=== PATIENT | male | born 1945 | race Caucasian/White ===

== ENCOUNTER 2016-08-28 14:55 | Inpatient (IN) | payer MEDICARE, OTHER ==
[~2016-08-28] VITALS: Ht 177.8 cm; Wt 98.4 kg
--- NOTE | ~2016-08-28 | CON ---
PATIENT'S NAME: ALE RM [facility] AGE: 71 Y [address] ROOM: [place] [address] LOCATION: GPCU ADMIT DATE: 08/28/2016 Consultation DISCHARGE DATE: FAMILY PHYSICIAN: Adali Walton ATTENDING PHYSICIAN: CARMINE UNGER DATE OF CONSULTATION: 08/30/2016 REASON FOR CONSULTATION: Postop wound infection/SSI, left lower extremity. HISTORY: Mr. Rm is a 71-year-old male who has had a history of significant peripheral arterial disease in his left leg. He underwent a left-sided femoral below- knee bypass procedure with PTFE graft on August 03. This was after having had a work on the right side back in April. He noted that shortly after the surgery he started having drainage from the wound near his left knee. The drainage persisted, he was started on Levaquin, and the drainage became a little bit more cloudy, thus he was brought into the hospital for IV antibiotics by Dr. Unger. CT scan of the leg had revealed a couple of fluid collections, one of which has gas on the rim, concerning for an infected fluid collection. He has been started on vancomycin and Zosyn and blood cultures have been sent. The patient denies having had any systemic signs of infection with no fevers, chills, sweats, nausea, vomiting, weight or appetite changes. He otherwise feels well. He is having a little bit of pain around his knee and up into his thigh, but otherwise does not really have any pain. ID has been asked to see and assist with further treatment. PAST MEDICAL HISTORY: Significant for coronary disease with CABG, he has ischemic cardiomyopathy, chronic diastolic heart failure, he has peripheral vascular disease with the vascular procedures done as above, diabetes, paroxysmal atrial fibrillation, and hypercholesterolemia. SOCIAL HISTORY: He does not smoke, drink, or use any illicit drugs now. FAMILY HISTORY: Reviewed and not related to anything of currently going on with his clinical presentation. MEDICATIONS: He is on vancomycin and Zosyn now. ALLERGIES: PATIENT'S NAME: ALE RM [facility] AGE: 71 Y [address] ROOM: [place] [address] LOCATION: GPCU ADMIT DATE: 08/28/2016 Consultation DISCHARGE DATE: FAMILY PHYSICIAN: Adali Walton ATTENDING PHYSICIAN: CARMNIE UNGER HE HAS NO KNOWN DRUG ALLERGIES. REVIEW OF SYSTEMS: All remaining review of systems otherwise negative with pertinent positives and negatives in the HPI. PHYSICAL EXAMINATION: GENERAL: He is not in acute distress. Awake, alert, and oriented. Lying in bed. VITAL SIGNS: His temperature max is 98.7, blood pressure is 141/78, pulse is 67, and respirations are 12. HEENT: NC/AT. EOMI. PERRLA. NECK: Supple. LUNGS: Clear. HEART: Regular, S1 and S2 without obvious murmur. ABDOMEN: Protuberant, soft, nontender, and nondistended. EXTREMITIES: He has a surgical incision in the medial aspect of his left knee, that is draining some serosanguineous purulent material that I did a culture on. There is a bit of wound dehiscence. There was a little bit of fatty tissue exposed. There is mild edema of his lower extremity, not really significant cellulitis now, without significant erythema. Does have a bit of induration along his tibia and the calf is definitely larger than the other side. LABORATORY DATA: White count 6.5, hemoglobin 10.6, platelet count 168, sedimentation rate was 64. Creatinine 0.8. CRP is 10.6. ASSESSMENT AND PLAN: 1. Surgical site infection, left lower extremity, after femoral to below- knee bypass with PTFE graft underneath this. 2. Multiple other medical problems including coronary disease, peripheral arterial disease, diabetes, paroxysmal atrial fibrillation. PLAN: I did a culture of the wound drainage to see if this helps us. He has already been on some antibiotics and this will be impacted by that. We will see what his blood cultures show. Overall concerning that the graft may be involved here, which is going to be difficult to fix. He may need to undergo a debridement at least to see what is all involved and/or perhaps even removal of the graft. We will see how he responds. Good news is he is not systemically ill now, and we will see what his cultures show. Another option is to try to suppress any apparent infection of the graft, but this is sometimes difficult. We will keep him on the vancomycin and Zosyn for now pending his cultures. We will see him again in a week and see how he does PATIENT'S NAME: ALE RM [facility] AGE: 71 Y [address] ROOM: [id number] [place], [place] [address] LOCATION: [facility] ADMIT DATE: 08/28/2016 Consultation DISCHARGE DATE: FAMILY PHYSICIAN: Adali Walton ATTENDING PHYSICIAN: CARMINE UNGER over time. If he fails to respond, then I think his only option would be surgical. We will treat him aggressively for now and await his cultures. MD RENO WIGGINS/jose /[id number] d: 08/31/16 0027 t: 09/05/16 1452, CONSULTATION REPORT
--- NOTE | ~2016-08-28 | CON ---
PATIENT'S NAME: ALE RADER [facility] AGE: 71 Y [address] ROOM: [place] [address] LOCATION: GPCU ADMIT DATE: 08/28/2016 Consultation DISCHARGE DATE: FAMILY PHYSICIAN: Adali Walton ATTENDING PHYSICIAN: LASHA UNGER REFERRING PHYSICIAN: Lasha Unger MD REASON FOR CONSULTATION: Medical management. HISTORY OF PRESENT ILLNESS: The patient is a 71-year-old male with past medical history most significant for peripheral vascular disease, status post recent left-sided femoropopliteal bypass approximately a month ago. He also has a past medical history of coronary artery disease, CABG, ischemic cardiomyopathy with improvement, chronic diastolic congestive heart failure, diminished right ventricular systolic function, and insulin-dependent diabetes as well as paroxysmal atrial fibrillation, on Coumadin. The patient developed drainage and warmth around his left anterior tibial incision site from his femoral-popliteal. He discussed this with his vascular surgeon, Dr. Unger who started him on Levaquin. However, the wound continued to open up and drain of purulent- appearing fluid. The patient also endorses history of chills, but no fevers, nausea, vomiting, chest pain, shortness of breath, or palpitations. Today, the patient was told to come into the hospital for aggressive antibiotic therapy by Dr. Unger. A CAT scan of the left leg with IV contrast is planned as well. REVIEW OF SYSTEMS: All systems have been reviewed and are negative aside from pertinent positives mentioned above. PAST MEDICAL HISTORY: Significant for coronary artery disease, status post CABG; ischemic cardiomyopathy with recently improved ejection fraction; stage III diastolic dysfunction; recent left femoropopliteal bypass; right femoral popliteal bypass; peripheral vascular disease; insulin-dependent diabetes; hypertension; hypercholesterolemia; and paroxysmal atrial fibrillation. SOCIAL HISTORY: Negative for any ongoing toxic habits. FAMILY HISTORY: Reviewed and is noncontributory due to known underlying etiology for his presentation. PATIENT'S NAME: ALE RADER [facility] AGE: 71 Y [address] ROOM: [place] [address] LOCATION: GPCU ADMIT DATE: 08/28/2016 Consultation DISCHARGE DATE: FAMILY PHYSICIAN: Adali Walton ATTENDING PHYSICIAN: LASHA UNGER CURRENT MEDICATIONS ARE: 1. Atorvastatin. 2. Carvedilol. 3. Clopidogrel. 4. CPAP. 5. Dextrose. 6. Furosemide. 7. Glucagon. 8. Hydrocodone/acetaminophen. 9. NovoLog based on the meals. 10. Detemir 68 units. 11. Levaquin 500 daily. 12. Losartan 50. 13. Magnesium oxide. 14. Metformin. 15. Multivitamin. 16. Nitroglycerin. 17. Potassium chloride. 18. Requip. 19. Temazepam. 20. Tramadol. 21. Warfarin. PHYSICAL EXAMINATION: VITAL SIGNS: Blood pressure is 125/68, heart rate is 63, saturating is 94% on room air, temperature is 98.6, and respirations are 16. GENERAL: Well-developed, well-nourished, elderly male, in no acute distress. NEUROLOGICAL: Exam is nonfocal. EYES: Pupils are equal and reactive to light. LYMPHATIC: No cervical lymphadenopathy. ENDOCRINE: No thyromegaly. LUNGS: Clear to auscultation in all flores. HEART: Rate is irregularly irregular with no appreciable murmurs, gallops, or rubs. GI: Abdomen is soft, nontender, and nondistended. : No costovertebral angle tenderness. VASCULAR: Exam demonstrates diminished pulses bilaterally. SKIN: Shows an approximately 3-inch incision which is dehisced and draining yellowish fluid approximately 4 inches below his knee. PSYCHIATRIC: Exam reveals appropriate mood, cognition, and affect. LAB RESULTS: Not available as of yet. IMPRESSION AND RECOMMENDATIONS: PATIENT'S NAME: ALE RADER [facility] AGE: 71 Y [address] ROOM: [place] [address] [facility] ADMIT DATE: 08/28/2016 Consultation DISCHARGE DATE: FAMILY PHYSICIAN: Adali Walton ATTENDING PHYSICIAN: LASHA UNGER This is a 71-year-old male, admitted for a ikely wound infection several weeks following a femoropopliteal bypass.Individual problems to be addressed are 1. Ssuspected wound infection: antibiotics and a CAT scan had been ordered by Primary Service. We will also draw blood cultures as the patient does endorse some vague systemic symptoms. 2. Stage III Chronic diastolic congestive heart failure with nonischemic cardiomyopathy. At this point, the patient appears euvolemic and we will monitor his volume status and continue him on his CHF regimen. 3. History of insulin-dependent diabetes. We will continue the patient on his home insulin regimen. We will discontinue metformin given the fact the patient will receive contrast. 4. Atrial fibrillation. At this point, he appears to be rate controlled and we will hold off on anticoagulation at least for today until we have the results from the CAT scan and if just in case a surgical intervention is planned. 5. Gastrointestinal prophylaxis. We will put the patient on Florastor as he is on broad-spectrum antibiotics. We will follow the patient with you. Thank you for allowing us to participate in the care of this gentleman. Time dedicated to this patient's encounter is [address]/jose /[id number] d: 08/28/16 2340 t: 09/03/16 0904, CONSULTATION REPORT
--- NOTE | ~2016-08-28 | CON ---
PATIENT'S NAME: ALE RADER [facility] AGE: 71 Y [address] ROOM: [place] [address] LOCATION: GPCU ADMIT DATE: 08/28/2016 Consultation DISCHARGE DATE: 09/05/2016 FAMILY PHYSICIAN: Adali Walton ATTENDING PHYSICIAN: Lasha Unger DATE OF CONSULTATION: 09/04/2016 REFERRING PHYSICIAN: Nikki Erazo MD REASON FOR CARDIOLOGY CONSULT: Ventricular tachycardia. HISTORY OF PRESENT ILLNESS: This is a 71-year-old male, familiar to [facility]. He was last seen by Dr. Erazo on 03/13/2016 for his history of ischemic cardiomyopathy, paroxysmal atrial flutter, coronary artery disease, and stable angina. Currently admitted for a left lower leg incision infection after a femoral-popliteal bypass. This consult requested due to the patient having ventricular tachycardia on his telemetry for about 4 beats. He has been having occasional PVCs over the last 24 hours. He denies chest pain, shortness of breath, dyspnea on exertion, or palpitations. He also denies presyncope or syncope, as well as nausea, vomiting, or diarrhea. Overall this time, he only complains of his left leg pain and no other medical issues from his standpoint currently. PAST MEDICAL HISTORY: 1. Coronary artery disease with a history of coronary artery bypass grafting. 2. Ischemic cardiomyopathy. 3. Diastolic congestive heart failure, chronic. 4. Peripheral vascular disease with a recent left femoral-popliteal bypass. 5. History of a right femoral-popliteal bypass. 6. Insulin-dependent diabetes mellitus. 7. Hypertension. 8. Hypercholesterolemia. 9. Paroxysmal atrial flutter. FAMILY HISTORY: No significant family history noted. SOCIAL HISTORY: The patient is a former cigarette smoker. He smoked 1-3 packs per day for a total of 50 years. He quit smoking in 2017 in June. He denies alcohol or illicit drug use. PATIENT'S NAME: ALE RADER [facility] AGE: 71 Y [address] ROOM: [place] [address] LOCATION: GPCU ADMIT DATE: 08/28/2016 Consultation DISCHARGE DATE: 09/05/2016 FAMILY PHYSICIAN: Adali Walton ATTENDING PHYSICIAN: Lasha Unger CURRENT MEDICATIONS: Reviewed. Please see MAR for full details. MEDICATION ALLERGIES: No known medication allergies. REVIEW OF SYSTEMS: Pertinent positive review of systems listed in the HPI. All other review of systems negative. PHYSICAL EXAMINATION: VITAL SIGNS: Temperature 98.4, pulse 51, respirations 20, blood pressure 145/76, O2 saturation 95% on room air. The patient weighs 96.2 kg. SKIN: [place], warm, and dry. EYES: Sclerae clear. No xanthelasmas. ENT: Oral mucosa is pink and moist. No jugular venous distention. No carotid bruits. CHEST: Respirations are even and unlabored. LUNGS: Clear to auscultation. Lung sounds are diminished to bilateral bases. HEART: Regular rate and rhythm. Normal S1, S2. No murmurs, rubs, or gallops. ABDOMEN: Soft and nontender. MUSCULOSKELETAL: Equal muscle strength in upper and lower extremities bilaterally against resistance. EXTREMITIES: Peripheral pulses palpable. No clubbing, cyanosis, or edema. Does have the presence of a wound VAC to his left lower extremity. PSYCH: Alert and oriented. Mood and affect are appropriate. IMPRESSION AND PLAN: Per Dr. Nikki Erazo: 1. Ventricular ectopy with a potassium of 4.2 and a magnesium of 2.1. We will check an EKG to fully evaluate electrocardiographic changes. 2. Coronary artery disease without complaints of angina. We will continue his beta blockers, statin, and Plavix. 3. Ischemic cardiomyopathy with last known ejection fraction of 45% on 02/02/2016. On beta-faisal, ARB, and Lasix. 4. Paroxysmal atrial flutter. Currently sinus rhythm. He is off long-term anticoagulation and unsure as to why he is not on anticoagulation. No noted recent history of bleeding and no planned surgery is upcoming, so we will restart his long-term anticoagulation with Coumadin and bridge him with IV heparin. I have spoken with Dr. Bora Hdz about this and he agrees with this plan. 5. Incisional infection from his femoral-popliteal bypass. Currently under the care of Vascular Surgery as well as Wound Care and does have a wound VAC placed to that injury. PATIENT'S NAME: ALE RADER [facility] AGE: 71 Y [address] ROOM: [id number] [place], [place] [address] [facility] ADMIT DATE: 08/28/2016 Consultation DISCHARGE DATE: 09/05/2016 FAMILY PHYSICIAN: Adali Walton ATTENDING PHYSICIAN: Lasha Unger. For his nonsustained ventricular tachycardia in the setting of paroxysmal atrial flutter and history of ischemic cardiomyopathy, we will continue to monitor, evaluate, and treat appropriately. I see no further need for invasive cardiac workup and no further cardiac recommendations at this time. Thank you for this consult. Thank you for allowing [facility] to interact in the care of this patient. LUCRETIA HERNANDEZ APRN FOR MD YUAN LAI/jose /[id number] d: 09/06/16 2219 t: 09/07/16 1052, CONSULTATION REPORT
--- NOTE | ~2016-08-28 | DS ---
PATIENT'S NAME: HERNAN RADER [facility] AGE: 71 Y [address] ROOM: [id number] [place], [place] [address] LOCATION: GPCU ADMIT DATE: 08/28/2016 Discharge Summary DISCHARGE DATE: 09/05/2016 FAMILY PHYSICIAN: Adali Walton ATTENDING PHYSICIAN: Lasha Unger FINAL DIAGNOSIS: Surgical incision infection. SECONDARY DIAGNOSES: Peripheral vascular disease, postop femoropopliteal bypass with graft, insulin-dependent diabetes mellitus, coronary artery disease, paroxysmal atrial flutter, hypertension, and chronic congestive heart failure. CONSULTATIONS: 1. Hospitalist for medication management. 2. [facility], Cardiology. 3. Infectious Disease, Dr. Voss. HOSPITAL COURSE: This is a 71-year-old male, admitted to [facility] on 08/28/2016 after presenting to the [facility] for evaluation of his distal left lower extremity incision site. The patient is post femoropopliteal bypass with graft on 08/03/2016. After staple removal, Hernan started having a significant increase in left lower extremity drainage, edema, and erythema. Involvement appeared superficial at the time of clinic evaluation, so he was admitted for aggressive treatment with IV antibiotics to prevent development of infection to his graft. The patient also needed rest with elevation of extremity to decrease reperfusion edema and monitoring for systemic infection. See history and physical for full patient details. The patient was admitted to the progressive care unit for monitoring of labs, vitals, telemetry, incision and administration of medications, and nursing assistance. A CT scan of the left leg with IV contrast was obtained showing gas and fluid collection. He was initially started on IV vancomycin and Zosyn with wet-to-dry with Dakin's twice a day to treat cellulitis. Blood cultures were drawn x2 without growth. Inflammatory markers were found to be elevated. Hospitalists were consulted for medication management. The patient does have a known history of paroxysmal atrial flutter, on Coumadin, which was stopped initially by hospitalist for the need of any surgical intervention. Infectious Disease was also consulted, and they obtained a wound culture and recommended that if the patient fails to respond to antibiotic treatment, he would need surgical intervention. The patient's lower extremity continued to improve over the hospital stay. The patient remained free of systemic symptoms of infection. Hernan denied any fevers, chills, or overall feeling unwell. From a physical exam standpoint, his leg did improve in appearance with a decrease in edema, erythema, and drainage. The drainage remained serosanguineous throughout his hospital stay and never PATIENT'S NAME: HERNAN RADER [facility] AGE: 71 Y [address] ROOM: [place] [address] LOCATION: GPCU ADMIT DATE: 08/28/2016 Discharge Summary DISCHARGE DATE: 09/05/2016 FAMILY PHYSICIAN: Adali Walton ATTENDING PHYSICIAN: Lasha Unger turned to purulent drainage. Also, wound VAC was applied on 09/01/2016 for control of drainage, and he was later transitioned to a home VAC prior to discharge. Cardiologists were consulted to see the patient for a run of V- TACH. He was restarted on his Coumadin during hospital stay and given heparin drip to bridge until INR is therapeutic. The patient did need to be discharged home with Lovenox as his INR was not therapeutic prior to discharge on Coumadin. The patient was found in a stable condition to be discharged home. DIAGNOSTICS: CT of left lower leg with contrast: Impression: Complex fluid and gas collection in the medial soft tissue at the knee and lower leg extending down from incision could reflect abscess. The arterial graft is patent. LABORATORY DATA: Wound culture grew Streptococcus agalactiae, group B. Blood cultures with no growth at 5 days. White blood cell count trending, 8.3, 6.5, 8.0, 8.6. DISCHARGE ORDERS: The patient is to be discharged home from the hospital on a diabetic diet and consume yogurt daily. He is full weightbearing bilaterally, but is to keep legs elevated when at rest to decrease edema. He is to follow up with Outpatient Wound Care every Sunday, Sunday, and Sunday for wound VAC dressing changes. Dr. Unger will follow the patient in Wound Care, and will plan on seeing the patient 2 weeks after discharge. Wound care nurses are to report any signs or symptoms of infection. The patient is also to call with any concerns of signs or symptoms of infection including redness, swelling, fever, chills, or change in drainage. The patient is to have his INR drawn on 09/08/2016 with results to be called to Dr. Capone. DISCHARGE MEDICATIONS: 1. Lasix 40 mg p.o. daily. 2. Metformin 1700 mg p.o. at bedtime. 3. Losartan 50 mg p.o. daily. 4. Multivitamin 1 tablet every day. 5. Coumadin 9 mg p.o. 4 days a week; take Sunday, Sunday, , Sunday. 6. Warfarin 6 mg p.o. daily 3 times a week; take Sunday, Sunday, Sunday. 7. Potassium chloride 10 mEq p.o. daily. 8. Dextrose 4 g orally as needed hypoglycemia. 9. Restoril 15 mg p.o. every night at bedtime. 10. Levemir 68 units subcutaneously every night at bedtime. 11. NovoLog 8 units subcutaneous every morning. 12. NovoLog 16 units subcutaneously every evening at 2100 hours. 13. Plavix 75 mg p.o. daily. 14. Magnesium 420 mg p.o. daily. PATIENT'S NAME: HERNAN RADER [facility] AGE: 71 Y [address] ROOM: [place] [address] [facility] ADMIT DATE: 08/28/2016 Discharge Summary DISCHARGE DATE: 09/05/2016 FAMILY PHYSICIAN: Adali Walotn ATTENDING PHYSICIAN: Lasha Unger 15. Coreg 12.5 mg p.o. twice daily. 16. Nitroglycerin 0.4 mg sublingually as needed for chest pain. 17. Lipitor 40 mg p.o. daily at bedtime. 18. Requip 0.5 mg p.o. daily at bedtime. 19. CPAP per home settings. 20. Metformin 850 mg p.o. daily in the morning. 21. Tramadol 50 mg p.o. every 6 hours p.r.n. pain. 22. Mobile 5/325 one to two tablets p.o. every 4 hours as needed pain. 23. Glucagon 1 mg subcutaneous one time hypoglycemia. 24. NovoLog 20 units subcutaneously every noon. 25. Align 1 capsule orally every day. 26. Lovenox 100 mg subcutaneously twice daily. 27. Keflex 500 mg p.o. 3 times daily. DISPOSITION: The patient is discharged to home in a stable condition. He is to follow discharge orders as prescribed. Education about discharge including wound VAC, medications, prescriptions, diet and activity, and followup appointments given to the patient, and the patient verbalized understanding of the plan and has no further questions or concerns at this time. He is to follow discharge orders as prescribed. TAMAR VIOLETA KAPOOR FOR LASHA UNGER MD TO/modl /[id number] d: 09/09/16 0512 t: 09/11/16 1345, DISCHARGE SUMMARY
[~2016-08-28 14:55] MED LIST: ASPIRIN LO-DOSE81 MG PO; COREG25 MG PO; COUMADIN6 MG PO; COZAAR100 MG PO; CPAP INH; GLUCAGON 1 MG PE1 MG SUB-Q; GLUCOPHAGE850 MG PO; GLUCOSE4 GM PO; HYDROCODON-ACE1 EAC4 PO; KCL - MICRO-K10 MEQ PO; LASIX40 MG PO; LEVAQUIN500 MG PO; LEVEMIR FL100 UNIT/1 SUB-Q; LEVEMIR100 UNIT/1 SUB-Q; LIPITOR80 MG PO; LOPRESSOR50 MG PO; MAGNESIUM OXID420 MG PO; MIRALAX17 GM PO; MULTI VITAMIN1 EACH PO; NITROSTAT0.4 MG SL; NORCO 5-325 TA1 EACH PO; NOVOLOG FL100 UNIT/1 SUB-Q; NOVOLOG100 UNIT/M SUB-Q; PLAVIX75 MG PO; REQUIP0.5 MG PO; RESTORIL15 MG PO; ULTRAM50 MG PO
[2016-08-28] MEDS ORDERED: NOVOLOG FL100 UNIT/1 SUB-Q (15:36)
--- NOTE | 2016-08-28 15:50 | NUR ---
Pt is 71 y/o male admit for incision infection in left lower leg for Dr. Unger. PT alert and oriented x3. Resides at home with his . Pt had a fem/ pop bypass on Aug 03 here with . PT wound is now draining sero- sanguinous clear yellow fluid, large amts. Pt has also had increased pain over the past few days. Hx afib/aflutter,PAD,CABG,stent,cardiac ablation,CHF,KY, hypercholest,htn,sleep apnea,RLS,DM. No allergies. Incision is red and draining.
[2016-08-28] MEDS ORDERED: LEVAQUIN500 MG PO (15:56)
[2016-08-28 16:27] LABS: BASOPHIL % 0.2 %; EOSINOPHIL # 0.2 K/uL (0.0-0.5); EOSINOPHIL % 2.2 %; HEMATOCRIT 36.1 % (37.0-53.0); HEMOGLOBIN 11.5 g/dL (11.0-16.0); IMMATURE GRANULOCYTE % 0.2 %; LYMPHOCYTE % 12.4 %; MCH 30.2 pg (27.0-34.0); MCHC 31.9 gm/dL (32.0-36.5); MCV 94.8 fl (83.0-98.0); MONOCYTE # 1.1 K/uL (0.0-1.0); MONOCYTE % 13.2 %; MPV 12.3 fl (9.4-12.4); NEUTROPHIL % 71.8 %; NRBC % 0 /100WBC (0-0.00); RBC 3.81 M/uL (3.50-5.50); RDW-CV 15.3 % (11.9-14.6); WBC 8.3 K/uL (4.0-11.0)
[2016-08-28 16:38] LABS: PLATELET COUNT 178 K/uL (150-450)
[2016-08-28 16:48] LABS: ANION GAP 12.4 (10.0-19.0); BLOOD UREA NITROGEN 19 mg/dL (6-24); CALCIUM 8.7 mg/dL (8.5-10.5); CHLORIDE 105 mMol/L (96-110); CO2 26 mMol/L (22-32); POTASSIUM 4.4 mMol/L (3.7-5.1); SODIUM 139 mMol/L (135-145)
[2016-08-28 16:50] LABS: ESTIMATED GFR (MDRD EQUATION) > 60
[2016-08-28 18:05] LABS: INR - (THERAPEUTIC) 1.6 (0.9-1.1); PROTIME 17.5 SECONDS (9.6-11.1)
--- NOTE | 2016-08-29 05:03 | NUR ---
Significant Event: Patient alert and oriented x3. SBP 116-148. All other vital signs stable. On RA. Dressing to L) Knee changed per orders. Slight drainage since. Drainage marked with third assessment. [place] x3 given for complaints of pain to L) leg. L.) Forearm IV S/L. Calm and cooperative with all cares. Follow up: Continue to monitor pain and L) Leg. Continue IV antibiotics.
--- NOTE | 2016-08-29 10:30 | NUR ---
Diabetes consult: Patient reports having diabetes for 15 years. Current A1C is 8.6%. Patient reports his previous A1C, 2 months prior was 7%. The patient reports his diabetes is managed by Dr. Walton at the [facility] in [place]. Blood sugars ran 235 and 330 yesterday, however the patient had a fasting blood sugar of 81 this morning. The patient reports he typically does not have low blood sugars. The patient does take large amounts of basal/bolus insulin to control blood sugars. Diabetes assessment form completed. Will continue to trend blood sugars.
--- NOTE | 2016-08-29 12:55 | NUR ---
Introduced self and role of care management to patient. He lives in [place] with his . He states that he is able to do all his own ADL's. He has been using a cane for the last few days. He states that his will be available to assist as needed. He denies any needs at this time. Will continue to follow.
[2016-08-29 17:56] LABS: MAGNESIUM 2.1 mg/dL (1.3-2.6); POTASSIUM 3.9 mMol/L (3.7-5.1)
--- NOTE | 2016-08-29 18:50 | NUR ---
Significant Event: VSS AND RA. AFEBRILE. 2 TABS NORCO GIVEN X3 FOR LT) LEG PAIN, WITH RELIEF. UP TO CHAIR AND AMBULATES IN MORROW WITH RN. IV ABX CONTINUE. WET TO DRY DRESSING CHANGE DONE THIS AM WITH DAKINS SOLUTION, SMALL AMOUNT SEROUS DRAINAGE PRESENT; LEG ELEVATED ALL SHIFT AND REMAINS C/D/I. VOIDS WITH ADEQUATE UOP. HAD A 15 BEAT RUN VTACH THIS EVENING, REPORTED TO MD AND MG AND K DRAWN; REPORTED TO MD AND ORDER FOR 40 MEQ KCL TO BE INFUSED FOR K LEVEL OF 3.9. MG WAS 2.1. Follow up: CONTINUE PLAN OF CARE.
[2016-08-30 03:47] LABS: BASOPHIL % 0.5 %; EOSINOPHIL # 0.3 K/uL (0.0-0.5); EOSINOPHIL % 4.5 %; HEMATOCRIT 32.6 % (37.0-53.0); HEMOGLOBIN 10.6 g/dL (11.0-16.0); IMMATURE GRANULOCYTE % 0.5 %; LYMPHOCYTE # 1.6 K/uL (0.8-4.0); MCH 30.4 pg (27.0-34.0); MCHC 32.5 gm/dL (32.0-36.5); MCV 93.4 fl (83.0-98.0); MONOCYTE # 0.8 K/uL (0.0-1.0); MONOCYTE % 12.2 %; MPV 12.1 fl (9.4-12.4); NEUTROPHIL # (ANC) 3.8 K/uL (1.4-9.0); NEUTROPHIL % 58.3 %; NRBC % 0 /100WBC (0-0.00); PLATELET COUNT 168 K/uL (150-450); RBC 3.49 M/uL (3.50-5.50); WBC 6.5 K/uL (4.0-11.0)
[2016-08-30 04:06] LABS: ALBUMIN 2.4 gm/dL (3.5-5.0); ANION GAP 11.7 (10.0-19.0); BLOOD UREA NITROGEN 14 mg/dL (6-24); CHLORIDE 109 mMol/L (96-110); CO2 27 mMol/L (22-32); CREATININE 0.8 mg/dL (0.6-1.3); ESTIMATED GFR (MDRD EQUATION) > 60; MAGNESIUM 2.2 mg/dL (1.3-2.6); PHOSPHORUS 3.4 mg/dL (2.5-4.9); POTASSIUM 3.7 mMol/L (3.7-5.1); SODIUM 144 mMol/L (135-145)
--- NOTE | 2016-08-30 04:55 | NUR ---
Significant Event: Patient alert and oriented x3. Vital signs stable. On RA. Dressing to L) Knee changed with per orders. Moderate amount of drainage with third assessment. [place] given x1 for complaints of pain to infection site. L) Forearm IV S/L. Up with 1 assist. Good uop. Calm and cooperative with all cares. Follow up: Continue to monitor L) leg and pain. Continue IV antibiotics.
--- NOTE | 2016-08-30 16:16 | NUR ---
[facility] Evaluated blood sugars today, FBS today was 80 and other ranging 130-150. Patient is very knowledged about his diabetes and [facility] CDE has nursing students in the room at time of education and patient is joking and giving students all kinds of advise. A1C states he had recent (2 weeks ago) A1C at CT of 7.2 % No further complaints at this time, instructed to notify staff if he needs assistance with diabetes while here at hospital, agrees to [facility] after dismissal.
--- NOTE | 2016-08-30 18:29 | NUR ---
PATIENT UP TO BR W/ 1 ASSIST, UP IN MORROW AT END OF SHIFT. VSS, RA. CONTINUE ANTIBIOTICS AND DRESSING CHANGES. HR 60'S-80'S, SBP 130'S-160'S. 2 NORCO W/ GOOD RELIEF.
--- NOTE | 2016-08-31 06:26 | NUR ---
Significant Event: Patient alert and oriented x3. SBP 140s-150s this shift. All other vital signs stable. On RA. Dressing to L) Knee changed per orders. ID consult with dressing change. Took cultures of wound. Edema continues. [place] given x2 for C/O pain to L) leg. L) Forearm IV S/L. Up with stand-by assist. Calm and cooperative with all cares. Follow up: Continue IV antibiotics. Continue dressing changes per orders.
--- NOTE | 2016-08-31 16:55 | NUR ---
PATIENT UP W/ STAND BY ASSIST. INCISION CONTINUES TO HAVE MODERATE TO LARGE AMOUNTS SEROUS/SEROSANG DRAINAGE. COVERED INCISION WHILE PATIENT SHOWERED. CONTINUED DAKINS SOLUTION DRESSING CHANGES. CONTINUED ANTIBIOTICS. VSS, AFEBRILE.
[2016-09-01 02:30] LABS: BASOPHIL % 0.4 %; EOSINOPHIL # 0.3 K/uL (0.0-0.5); EOSINOPHIL % 3.8 %; HEMATOCRIT 33.8 % (37.0-53.0); HEMOGLOBIN 11.1 g/dL (11.0-16.0); IMMATURE GRANULOCYTE # 0.1 K/uL (0.0-0.3); IMMATURE GRANULOCYTE % 0.6 %; LYMPHOCYTE # 1.3 K/uL (0.8-4.0); LYMPHOCYTE % 16.3 %; MCH 30.3 pg (27.0-34.0); MCHC 32.8 gm/dL (32.0-36.5); MCV 92.3 fl (83.0-98.0); MONOCYTE % 12.2 %; MPV 11.6 fl (9.4-12.4); NEUTROPHIL # (ANC) 5.3 K/uL (1.4-9.0); NEUTROPHIL % 66.7 %; NRBC % 0 /100WBC (0-0.00); PLATELET COUNT 194 K/uL (150-450); RBC 3.66 M/uL (3.50-5.50); RDW-CV 15.1 % (11.9-14.6)
[2016-09-01 02:45] LABS: ALBUMIN 2.5 gm/dL (3.5-5.0); ALK PHOS 78 IU/L (33-138); ALT 25 IU/L (12-78); AST 18 IU/L (10-40); BLOOD UREA NITROGEN 19 mg/dL (6-24); CALCIUM 8.2 mg/dL (8.5-10.5); CHLORIDE 109 mMol/L (96-110); CO2 24 mMol/L (22-32); CREATININE 0.8 mg/dL (0.6-1.3); ESTIMATED GFR (MDRD EQUATION) > 60; SODIUM 142 mMol/L (135-145); TOTAL BILIRUBIN 0.3 mg/dL (0.0-1.5); TOTAL PROTEIN 6.5 g/dL (6.0-8.4)
--- NOTE | 2016-09-01 04:27 | NUR ---
Patient A/Ox3. VSS on RA. Up standby assist. Walked halls. Lungs clear. Bowel sounds present. IV to Lt forearm TKO, antibotics. [place] x2 for leg pain. Changed dressing to leg, pulses +2.
--- NOTE | 2016-09-01 11:04 | NUR ---
reviewed student charting and on the floor from [phone] saloni red-ccc
--- NOTE | 2016-09-01 13:29 | NUR ---
A - PT SCREENED D/T LOS. NONHEALING WOUND LLE. 1-2+ EDEMA. HT: 70" WT: 221# BMI: 31.7 LABS: ACCUCHECK WNL->200, GLU 150, ALB 2.5, CRP 10.6 MEDS: VANCO, INSULIN, KCL, LASIX, LEVEMIR, ZOSYN, FLORASTOR, SSI DIET: DIABETIC. INTAKE: 75-100% NEEDS: 5037-4417 (15-20 KCAL/KG), 100-120 G PRO (1-1.2 G/KG), 2500 ML FLUID (25 ML/KG) D - INCREASED PRO NEEDS R/T HEALING AEB ALTERED SKIN INTEGRITY. I - GOAL FOR INTAKE TO REMAIN 75-100% FOR DURATION OF STAY. GOAL FOR IMPROVED SKIN INTEGRITY WILL ADD RODRÍGUEZ BID M/E - WILL MONITOR INTAKE AND SKIN F/U IN 4-6 DAYS.
--- NOTE | 2016-09-01 16:40 | NUR ---
Significant Event: Patient A/O x3 VS stable, on RA. 1 assist transfer with gaitbelt. Patient ambulates x2 this shift with Student nurse. Wound Vac to L) knee incision, applied by WOC. Vishal Canas'Willi this shift per MD. Continues to recieve Zosyn. [place] given for pain this shift with relief noted. L) FA IV patent. Patient on ACHS accuchecks. No complains of numbness or tingling to extremities. Bilateral pulses +2. BM this shift. Patient pleasant and cooperative with cares. Follow up:
--- NOTE | 2016-09-02 07:22 | NUR ---
Significant Event: Alert and oriented X3. VSS. RA. Afebrile. Wound vac to left leg below the knee. No issues since WOC changed out machine last evening. 1 norco for c/o pain at 2100. Ambulated in [place] with SBA and cane 3 laps last night. rested well. Voiding well per urinal. Follow up: continue to monitor.
--- NOTE | 2016-09-02 16:35 | NUR ---
Significant Event: PT A/O X3, VSS, PT UP WITH SBA AND CANE, PT AMBUALTE IN HALLS X3-4 THIS TOD. WOUND VAC INTACT. IV ANTIBIOTICS AND NS AT TKO. ELEVATE LEGS PER DR. ORDER, THEN ALSO IN BED W/ BED POSISTIONING AND PILLOWS. PT TOLERATE WELL. CALL LIGHT AND PERSONAL ITEMS IN REACH. QUESTIONS/CONCERNS ADDRESSED THIS TOD. FAMILY AT BEDSIDE OFF/ON THIS TOD. Follow up: ELEVATE LEGS BID PER DR ORDER. CONTINUE TO MONITER, CONTINUE PER PLAN OF CARE.
--- NOTE | 2016-09-03 05:51 | NUR ---
Significant event: A/O x 3. Up in the [place] x 2 with SBA. Wound vac dressing reinforced due to it leaking. [place] given x 2 last at 0230 with releif noted each time. IV zosyn running inermittently with ns at tko between doses. cooperative with all cares
--- NOTE | 2016-09-03 18:40 | NUR ---
Significant Event: PT A/O X3, VSS, PT UP WITH SBA - AMBULATE IN ROOM. WOUND VAC CHANGED BY WOUND TEAM - [place]. ELEVATE BLE ABOVE HEART BID TOLERATED. CALL LIGHT AND PERSONAL ITEMS IN REACH, QUESTIONS/CONCERNS ADDRESSED THIS TOD. Follow up: WOUND TO SEE AGAING TOMORROW, ENCOURAGE ACTIVIYT TOLERATE, CONTINUE TO MONITER, CONTINUE PER PLAN OF CARE.
--- NOTE | 2016-09-04 05:37 | NUR ---
Signifiacant event: A/O x 3. Up with sba in humph[place] and room. Wound vac in place and dressing intact. Patient does hace orders to go outside if staff is able to take him. [place] given x 2 last at 0430 with releif noted.
[2016-09-04 12:48] LABS: ANION GAP 13.2 (10.0-19.0); BLOOD UREA NITROGEN 22 mg/dL (6-24); CALCIUM 8.6 mg/dL (8.5-10.5); CHLORIDE 106 mMol/L (96-110); CO2 26 mMol/L (22-32); CREATININE 0.9 mg/dL (0.6-1.3); ESTIMATED GFR (MDRD EQUATION) > 60; MAGNESIUM 2.1 mg/dL (1.3-2.6); POTASSIUM 4.2 mMol/L (3.7-5.1); SODIUM 141 mMol/L (135-145)
[2016-09-04 14:42] LABS: BASOPHIL % 0.5 %; EOSINOPHIL # 0.3 K/uL (0.0-0.5); EOSINOPHIL % 3.3 %; HEMATOCRIT 35.9 % (37.0-53.0); HEMOGLOBIN 11.5 g/dL (11.0-16.0); IMMATURE GRANULOCYTE # 0.1 K/uL (0.0-0.3); IMMATURE GRANULOCYTE % 0.6 %; LYMPHOCYTE # 1.5 K/uL (0.8-4.0); LYMPHOCYTE % 17.5 %; MCH 29.6 pg (27.0-34.0); MCV 92.5 fl (83.0-98.0); MONOCYTE # 0.8 K/uL (0.0-1.0); MONOCYTE % 9.5 %; NEUTROPHIL # (ANC) 5.9 K/uL (1.4-9.0); NEUTROPHIL % 68.6 %; NRBC % 0 /100WBC (0-0.00); RBC 3.88 M/uL (3.50-5.50); RDW-CV 14.9 % (11.9-14.6); WBC 8.6 K/uL (4.0-11.0)
[2016-09-04 14:45] LABS: PLATELET COUNT 269 K/uL (150-450)
[2016-09-04 15:08] LABS: PROTIME 10.5 SECONDS (9.6-11.1)
--- NOTE | 2016-09-04 15:17 | NUR ---
Introduced self and role of care management to pt. He states he is doing well and really not certain on the plans yet. He still plans on home and I did ask if he needed to go with the wound vac if he wanted hhc or go outpt and he stated he would rather do as an outpt due to not being homebound. WIll continue to follow.
--- NOTE | 2016-09-04 16:28 | NUR ---
Significant Event: pt up in [place] ok one asst. No c/o pain. Pt had 4beat vtach late am asympt. Cardio starts heparin drip, 1000u/hr first ptthp at 1900. Coumadin started po. EKg done. No c/o pain. WOC checked on wound vac. Follow up:home tomorrow???
[2016-09-05 02:13] LABS: PROTIME 10.6 SECONDS (9.6-11.1)
--- NOTE | 2016-09-05 04:31 | NUR ---
Significant Event: A/O, SBP 140-150s, HR 50-70s, RA, afebrile, wound vac to L) leg dry/intact, good UOP, ambulated in hallway before bed, Heparin gtt at 1400 units/hr, next ptthp at 0830, [place] x1, hs accucheck- 302 Follow up: continue plan of care
--- NOTE | 2016-09-05 08:42 | NUR ---
A - NUTRITION F/U. NO NEW LABS. PT W/ NON-HEALING LLE. EST NEEDS: 3141-9591 KCALS, 100-120 KCALS. DIET: DIABETIC W/ RODRÍGUEZ BID. INTAKE 100%. D - PT W/ INCREASED NUTRIENT NEEDS R/T ALTERED SKIN INTEGRITY AEB NON-HEALING LLE WOUND. I - GOAL: CONTINUED 100% INTAKE. M/E - WILL CONT CURRENT SUPPLEMENT. F/U IN 4-6 DAYS.
[2016-09-05] MEDS ORDERED: DAKIN'S473 M1 (11:22)
[2016-09-05] MEDS ORDERED: LOVENOX 10100 MG/1 M SUB-Q (11:24)
[2016-09-05] MEDS ORDERED: ALIGN4 MG PO (11:24)
[2016-09-05] MEDS ORDERED: KEFLEX500 MG PO (11:25)
--- NOTE | 2016-09-05 11:27 | NUR ---
Social visit with patient today. He has orders to discharge home. He will have a wound vac and come to outpt wound clinic for changes. He denies any discharge needs. Will continue to follow.
--- NOTE | 2016-09-05 13:21 | NUR ---
Patient known to me from prior teaching. Reintroduced self and purpose of heart healthy education and care transitions. Calendar given, information reviewed, verbalized understanding. Has been doing well at home from the heart standpoint.
--- NOTE | 2016-09-05 16:10 | NUR ---
DISCHARGE: A/O X3. UP AD RADHA IN ROOM. SHOWERED THIS AM. WOUND VAC TO LEFT LEG CHANGED TO HOME WOUND VAC BY WOC RN. C/O PAIN TO LEFT LEG, NORCO 2 TABS GIVEN X2 WITH GOOD RELIEF NOTED. DISCHARGE INSTRUCTIONS REVIEWED INCLUDING F/U APPOINTMENTS WITH WOUND CARE ON 09/08/16, PT WILL HAVE INRs DRAWN AT WOUND CARE APOINTMENTS AND RESULTS CALLED TO DR. VAUGHAN. DISCHARGING ON LOVENOX X5 DOSES, INSTRUCTIONS GIVEN VERBALLY AND WRITTEN TO PATIENT ON LOVENOX ADMINISTRATION AND DISPOSAL OF USED NEEDLES. INFORMATION GIVEN ON NEW MEDICATIONS. PIV REMOVED TO LEFT FA WITHOUT COMPLICATIONS, GAUZE & COBAN APPLIED. VSS. NO FURTHER QUESTIONS AT THIS TIME. TAKEN TO [facility] BY RN VIA WHEELCHAIR @ [phone]. WOUND CARE SUPPLIES & PT'S BELONGINGS SENT WITH PATIENT.
[2016-09-08] MEDS ORDERED: RESTORIL15 MG (14:41)
[2016-09-08] MEDS ORDERED: COREG12.5 MG (14:41)
[2016-09-08] MEDS ORDERED: PLAVIX75 MG (14:43)
[2016-09-25] MEDS ORDERED: KEFLEX500 MG PO (11:02)
[2016-11-09] MEDS ORDERED: NEURONTIN300 MG PO (09:31)
[2016-11-24] MEDS ORDERED: ELIQUIS5 MG PO (08:40)
[2017-01-30] MEDS ORDERED: MAGOX 400400 MG PO (10:52)
[2017-01-30] MEDS ORDERED: ENTRESTO 24 MG1 EACH PO (10:55)
[2017-01-30] MEDS ORDERED: [UNRECOGNIZED DRUG - OTHER] PO (10:56)
[2017-02-08] MEDS ORDERED: PLAVIX75 MG PO (14:35)
[2017-02-15] MEDS ORDERED: BACTRIM DS1 TAB PO (13:34)
[2017-02-15] MEDS ORDERED: OXYGEN M-15 (16:38)
== END 2016-09-05 13:45 | disposition disaster alternative care site (69) | DRG 863 ==
LOC: GPCU 14:55
PROVIDERS: Family Medicine; Internal Medicine; Internal Medicine Interventional Cardiology; Nurse Practitioner; Nurse Practitioner Family; ADMIT Surgery Vascular Surgery
DX: T81.4XXA Infection following a procedure, initial encounter (principal); I47.2 Ventricular tachycardia; I48.92 Unspecified atrial flutter; I11.0 Hypertensive heart disease with heart failure; I50.32 Chronic diastolic (congestive) heart failure; L03.116 Cellulitis of left lower limb; Y83.8 Other surgical procedures as the cause of abnormal reaction of the patient, or of later complication, without mention of misadventure at the time of the procedure; I25.10 Atherosclerotic heart disease of native coronary artery without angina pectoris; Z95.1 Presence of aortocoronary bypass graft; I25.2 Old myocardial infarction; E78.5 Hyperlipidemia, unspecified; E11.9 Type 2 diabetes mellitus without complications; Z95.5 Presence of coronary angioplasty implant and graft; I73.9 Peripheral vascular disease, unspecified; J44.9 Chronic obstructive pulmonary disease, unspecified; Z87.891 Personal history of nicotine dependence; Z79.4 Long term (current) use of insulin; Z79.02 Long term (current) use of antithrombotics/antiplatelets; I25.5 Ischemic cardiomyopathy; I48.0 Paroxysmal atrial fibrillation; Z79.01 Long term (current) use of anticoagulants
CPT/HCPCS: J1644; J2543; J3370; J3480; J7040; J7050; Q9967

== ENCOUNTER → 2016-11-08 | Outpatient (CLI) | payer MEDICARE, OTHER ==
[~2016-11-08] MED LIST changes: +ALIGN4 MG PO; +BACTRIM DS1 TAB PO; +COREG12.5 MG; +DAKIN'S473 M1; +ELIQUIS5 MG PO; +ENTRESTO 24 MG1 EACH PO; +KEFLEX500 MG PO; +LIDEX 0.05% CRE30 GM TOP; +LOVENOX 10100 MG/1 M SUB-Q; +MAGOX 400400 MG PO; +NEURONTIN300 MG PO; +OXYGEN M-15; +PLAVIX75 MG; +RESTORIL15 MG; +THERA-VITE W/ B1 TAB PO; +[UNRECOGNIZED DRUG - OTHER] PO
--- NOTE | ~2016-11-08 | ESTC ---
Cardiac Perfusion Imaging Demographics Patient Name PRASANTH Garcia Gender Male Patient Number [id number] Race Visit Number [id number] [place] [id number] Room Number Accession Number [id number] Height 70 inches Date of 1945 Weight 224 pounds Interpreting Maynor Date of study 11/08/2016 Physician Andrew Supervising /DEBBIE Garcia APRN NM Technologist Rachell Brambila Ordering Physician Stress feed research technician Stress ECG Reading Hemal Garcia APRN Nurse Aurora Watkins RN Physician Wilder Ndiaye The procedure was explained in detail to the patient. Risks, complications and alternative treatments were reviewed. Written consent was obtained. Medications Reviewed with Patient prior to Procedure. Procedure Procedure Type: Nuclear Stress Test:Pharmacological, Lexiscan, Cardiolite Stress Test Procedure Start time: 11/08/2016 09:17 Indications: History of CAD. Risk Factors The patient risk factors include:prior PCI on 06/18/2015;prior CABG on 06/18/2000;former tobacco use, treated hypercholesterolemia, insulin treated diabetes mellitus, dyslipidemia, prior heart failure , prior UT and ( years not smokin). Conclusions Summary Perfusion Images: The overall quality of the study is fair, due to gastrointestinal tracer uptake. Left ventricular cavity is noted to be severely dilated on the stress and rest studies. There is no evidence of abnormal lung activity. The right ventricle is not visualized and cannot be assessed. Stress SPECT images reveal a large sized area of severe decreased isotope uptake of the entire inferior wall . Compared to stress images, on rest images this perfusion abnormality is mostly fixed. On gated SPECT imaging left ventricular ejection fraction was calculated to be abnormal at 34%. Unable to comment on regional wall motion due to poor isotope uptake in the inferior wall Impression ECG portion of the stress test is clinically negative for ischemia by diagnostic criteria. Myocardial perfusion imaging is moderately abnormal. Images reveal a large sized area of inferior wall infarct. Gated wall motion is abnormal with LVEF 34%. This is a intermediate risk stress test. Stress Protocols Resting ECG Sinus bradycardia with 1st degree AVB. Pre-stress physical exam: Patient assessed by Dakota MCDANIEL prior to testing. Chest - CTA Cardio - RRR, S1, S2 Predicted HR: 150 bpm HR response: Appropriate BP response: Appropriate Reason for termination:Infusion complete ECG Findings No ECG changes suggestive of ischemia. Arrhythmias Occasional PVC's after lexiscan infusion. Symptoms No symptoms with Lexiscan infusion. Complications Procedure complication: None. Stress Interpretation Appropriate hemodynamic response to Lexiscan. No significant ST-T wave changes with Lexiscan. ECG portion is negative for ischemia by diagnostic criteria. Will correlate with nuclear images. Imaging Results Applied corrections - Motion correction applied High risk findings Summed scores - Summed stress score: 20 - Summed rest score: 23 - Summed difference score: -3 Stress ejection Ejection fraction:35 % EDV :211 ml ESV :138 ml Stroke volume :73 ml LV mass :205 gr Imaging Protocols Rest Stress Isotope:Tc99m Sestamibi IV Isotope: Tc99m Sestamibi IV Isotope dose:14.6 mCi Isotope dose:46.1 mCi Date:11/08/2016 07:42 Date:11/08/2016 09:36 Technique: SPECT Technique: Gated Supine SPECT Supine Scan Time:45-60 minutes post Scan Time:45-60 minutes post injection injection Procedure Medications - Regadenoson (Lexiscan) 0.4 mg IV over 10-15 sec. I.V. . Medical History Admission Data Admission date: 11/08/2016 Admission Time: 07:11 Hospital Status: Outpatient. Signatures dtt: ANDREW LAZARO dtd: 11/08/16916 Physician Self Edit
[2016-11-08 07:56] LABS: ALBUMIN 3.5 gm/dL (3.5-5.0); ALK PHOS 86 IU/L (33-138); ALT 38 IU/L (12-78); ANION GAP 13.5 (10.0-19.0); AST 24 IU/L (10-40); BLOOD UREA NITROGEN 29 mg/dL (6-24); CALCIUM 8.5 mg/dL (8.5-10.5); CHLORIDE 108 mMol/L (96-110); CO2 24 mMol/L (22-32); CREATININE 0.9 mg/dL (0.6-1.3); ESTIMATED GFR (MDRD EQUATION) > 60; POTASSIUM 4.5 mMol/L (3.7-5.1); SODIUM 141 mMol/L (135-145); TOTAL BILIRUBIN 0.3 mg/dL (0.0-1.5); TOTAL PROTEIN 7.1 g/dL (6.0-8.4)
== END | disposition disaster alternative care site (69) ==
LOC: GRAD 11-03 07:00
PROVIDERS: Internal Medicine Interventional Cardiology
DX: I25.10 Atherosclerotic heart disease of native coronary artery without angina pectoris (principal); E78.00 Pure hypercholesterolemia, unspecified; E11.9 Type 2 diabetes mellitus without complications; E78.5 Hyperlipidemia, unspecified; I25.2 Old myocardial infarction; R06.00 Dyspnea, unspecified; R94.39 Abnormal result of other cardiovascular function study; Z87.891 Personal history of nicotine dependence; Z95.1 Presence of aortocoronary bypass graft; Z98.62 Peripheral vascular angioplasty status
CPT/HCPCS: A9500; J2785

== ENCOUNTER → 2016-11-16 | Outpatient (CLI) | payer MEDICARE, OTHER ==
--- NOTE | ~2016-11-16 | ECHO ---
Transthoracic Echocardiography Report (TTE) Demographics Patient Name ALE RADER Date of Study 11/16/2016 Patient Number [id number] Visit Number [id number] Date of 1945 Room Number Gender Male Number Age 71 year(s) Referring Casrto Jordan Data Analytics Architect Darling Swenson Physician RD, RVT Physician Interpreting Castro Jordan Almond Blancher Physician Supervising Ordering Castro Jordan MD/MLP Physician Nurse Stress Potato Inspector Conclusions Contractility Score Summary At rest the following contractility abnormalities were noted: Hypokinesis of the Mid infero-lateral, the Basal infero-lateral, the Apical inferior and the Apical lateral segments; Akinesis of the Mid inferior and the Basal inferior segments. Contractility of all other segments appeared normal. Summary Dilated cardiomyopathy with mildly reduced LV systolic function. The estimated left ventricular ejection fraction is 40-45%. There is evidence of diastolic dysfunction, unable to accurately comment due to afib, E/e1 is 28. Mildly dilated right ventricle. Severe biatrial enlargement. Mild tricuspid regurgitation by color Doppler. There is mild pulmonary hypertension. The pulmonary pressure (RVSP) is 46.81 mmHg. Procedure Type of Study TTE procedure:2D Echocardiogram. Procedure Date Date: 11/16/2016 Start: 11:04 AM Study Location: Echo Lab Technical Quality: Adequate visualization Indications:Coronary artery disease and History of CABG. Appropriate Use Criteria: 9 Patient Status: Routine HR: 89 bpm BP: 178/86 mmHg Allergies - No known allergies. M-Mode/2D Measurements LV Diastolic Dimension: 6.13 cm LV Systolic Dimension: 5.3 cm LV Septum Diastolic: 1.12 cm LV PW Diastolic: 1.12 cm Cardiac Output: 7.37 l/min LA Dimension: 4.7 cm LVOT: 2.2 cm LVOT VTI: 21.8 cm RV Base: 4.79 cm LV Stroke volume: 82.83 ml RV Length: 8.04 cm TAPSE: 2.27 cm TDI-S': 10.1 cm/s Doppler Measurements AV Peak Velocity: 1.32 m/s MV Peak E-Wave: 1.29 m/s AV Peak Gradient: 6.97 mmHg AV Mean Gradient: 4 mmHg MV P1/2t: 46 msec LVOT Peak Velocity: 0.93 m/s TR Velocity:2.82 m/s PV Peak Velocity: 0.71 m/s TR Gradient:31.81 mmHg PV Peak Gradient: 2.01 mmHg Estimated RAP:15 mmHg Estimated PASP: 46.81 mmHg Estimated RVSP: 47 mmHg E' Septal Velocity: 0.05 m/s E' Lateral Velocity: 0.05 m/s Findings Left Ventricle The left ventricle is mildly dilated . Mild eccentric left ventricular hypertrophy. There is evidence of diastolic dysfunction, unable to accurately comment due to afib, E/e1 is 28. Right Ventricle Mildly dilated right ventricle. Left Atrium The left atrium is severely dilated by LA volume index measurement. Right Atrium The right atrium is severely dilated. IVC measures 2.1 cm with inspiratory collapse. Mitral Valve Mild mitral regurgitation by color Doppler. Aortic Valve Normal aortic valve structure and function. Tricuspid Valve Mild tricuspid regurgitation by color Doppler. There is mild pulmonary hypertension. The pulmonary pressure (RVSP) is 46.81 mmHg. Pulmonic Valve Normal pulmonic valve structure and function. Pericardial Effusion No evidence of pericardial effusion. Miscellaneous Visualized portions of the aortic root and ascending aorta appear normal in size. Pleural Effusion No evidence of pleural effusion. Contractility Score LV regional wall motion:(0-Non visualized 1-Normal 2-Hypokinesis 3-Akinesis 4-Dyskinesis 5-Aneurysm) Signature dtt: ERIKA ARMENDARIZ dtd: 11/16/16 1104 Physician Self Edit
== END | disposition disaster alternative care site (69) ==
LOC: GCAR 10:40
DX: I25.10 Atherosclerotic heart disease of native coronary artery without angina pectoris (principal); R06.00 Dyspnea, unspecified; I51.7 Cardiomegaly; I07.1 Rheumatic tricuspid insufficiency; I27.2 Other secondary pulmonary hypertension; Z95.1 Presence of aortocoronary bypass graft

== ENCOUNTER → 2017-01-15 | Outpatient (CLI) | payer MEDICARE, OTHER ==
[2017-01-15 12:55] LABS: BASOPHIL # 0.1 K/uL (0.0-0.2); BASOPHIL % 0.7 %; EOSINOPHIL # 0.2 K/uL (0.0-0.5); EOSINOPHIL % 2.7 %; HEMATOCRIT 42.2 % (37.0-53.0); IMMATURE GRANULOCYTE % 0.2 %; LYMPHOCYTE # 1.7 K/uL (0.8-4.0); MCH 31.9 pg (27.0-34.0); MCHC 33.2 gm/dL (32.0-36.5); MCV 96.1 fl (83.0-98.0); MONOCYTE # 0.6 K/uL (0.0-1.0); MONOCYTE % 7.3 %; MPV 12.1 fl (9.4-12.4); NEUTROPHIL # (ANC) 5.7 K/uL (1.4-9.0); NEUTROPHIL % 69.1 %; NRBC % 0 /100WBC (0-0.00); PLATELET COUNT 193 K/uL (150-450); RBC 4.39 M/uL (3.50-5.50); RDW-CV 15.1 % (11.9-14.6); WBC 8.2 K/uL (4.0-11.0)
[2017-01-15 13:10] LABS: ALBUMIN 3.7 gm/dL (3.5-5.0); ANION GAP 12.4 (10.0-19.0); CALCIUM 8.8 mg/dL (8.5-10.5); CREATININE 0.9 mg/dL (0.6-1.3); POTASSIUM 4.4 mMol/L (3.7-5.1); TOTAL PROTEIN 7.5 g/dL (6.0-8.4)
[2017-01-15 13:11] LABS: TOTAL BILIRUBIN 0.7 mg/dL (0.0-1.5)
== END | disposition disaster alternative care site (69) ==
LOC: LNHI 12:44
PROVIDERS: Surgery Vascular Surgery
DX: I70.228 Atherosclerosis of native arteries of extremities with rest pain, other extremity (principal)

== ENCOUNTER 2017-02-02 07:58 | Outpatient (CLI) | payer MEDICARE, OTHER ==
[~2017-02-02] VITALS: Ht 177.8 cm; Wt 94.7 kg
--- NOTE | ~2017-02-02 | OR ---
PATIENT'S NAME: ALE RADER [facility] AGE: 71 Y [address] ROOM: [place] [address] LOCATION: GPCU ADMIT DATE: 02/02/2017 OR/Procedure Report DISCHARGE DATE: FAMILY PHYSICIAN: Adali Walton ATTENDING PHYSICIAN: LASHA UNGER SURGEON: Lasha Unger MD DIRECTOR TELEMETRY: DATE OF PROCEDURE: 02/02/2017 PREOPERATIVE DIAGNOSIS: Right lower extremity claudication. POSTOPERATIVE DIAGNOSIS: Right lower extremity claudication. PROCEDURE: Right lower extremity angiogram. FOUNDER CEO & PRESIDENT: Kody. ANESTHESIA: MAC, local. ESTIMATED BLOOD LOSS: 5 mL. OPERATIVE FINDINGS: SFA and right femoral-popliteal graft complete occlusion, below-knee pop, patent, via collaterals from the profunda. DESCRIPTION OF PROCEDURE: The patient was brought to laborer fryer farm, placed supine on the laborer fryer farm table, prepped and draped in a sterile manner. Preoperative time-out was performed. The patient received preoperative antibiotics. We gained access via the left groin. We used ultrasound guidance to gain access above the femoral-popliteal bypass on the left. We then exchanged using Seldinger technique for a 5-Tristanian sheath. We went up in the aorta using 0.035 Glidewire and an Omni Flush catheter. We went up over the aortic bifurcation, parked our catheter in the common femoral on the right and performed a series of angiograms of the right lower extremity. The SFA and the popliteal were completely occluded. The profunda was patent with large collaterals down to the below-knee pop. The patient would require another bypass; however, he is only currently claudicating and does not have critical limb ischemia. We will continue to monitor and perform bypass only if the patient progresses to critical limb ischemia. Sheath was removed. Pressure was held. The patient tolerated the procedure well and transferred to recovery room and home later that day. LASHA UNGER MD PATIENT'S NAME: ALE RADER [facility] AGE: 71 Y [address] ROOM: [place] [address] LOCATION: GPCU ADMIT DATE: 02/02/2017 OR/Procedure Report DISCHARGE DATE: FAMILY PHYSICIAN: Adali Walton ATTENDING PHYSICIAN: LAHSA UNGER/jeanettel /[id number] d: 02/02/17 1331 t: 02/04/17 1629, OPERATIVE SUMMARY
[~2017-02-02 07:58] MED LIST changes: -BACTRIM DS1 TAB PO; -LIDEX 0.05% CRE30 GM TOP; -OXYGEN M-15; -THERA-VITE W/ B1 TAB PO
[2017-02-08] MEDS ORDERED: PLAVIX75 MG PO (14:35)
[2017-02-15] MEDS ORDERED: BACTRIM DS1 TAB PO (13:34)
[2017-02-15] MEDS ORDERED: OXYGEN M-15 (16:38)
== END 2017-02-02 16:00 | disposition disaster alternative care site (69) ==
LOC: GPCU 07:58 → GCAT 07:58 → GPOC 08:00 → GCAT 16:00
PROC: B40FYZZ Plain Radiography of Right Lower Extremity Arteries using Other Contrast (ICD-10-PCS; principal; 2017-02-02)
DX: I70.211 Atherosclerosis of native arteries of extremities with intermittent claudication, right leg (principal); E11.9 Type 2 diabetes mellitus without complications
CPT/HCPCS: C1769; C1887; J0690; J1644; J2001; J2250; J2720; J3010; J7030

== ENCOUNTER 2017-02-16 15:00 | Inpatient (IN) | payer MEDICARE, OTHER ==
[~2017-02-16] VITALS: Ht 177.8 cm; Wt 97.9 kg
--- NOTE | ~2017-02-16 | DS ---
PATIENT'S NAME: ALE RADER [facility] AGE: 71 Y [address] ROOM: [address] [address] LOCATION: GPCU ADMIT DATE: 02/20/2017 Discharge Summary DISCHARGE DATE: 02/24/2017 FAMILY PHYSICIAN: Adali Walton ATTENDING PHYSICIAN: Lasha Unger FINAL DIAGNOSIS: Right lower extremity critical limb ischemia. SECONDARY DIAGNOSES: 1. Insulin-dependent diabetes mellitus type 2. 2. Hyperkalemia. 3. Essential hypertension. 4. Obstructive sleep apnea. 5. Paroxysmal atrial fibrillation. 6. Coronary artery disease, status post CABG. 7. Hypotension, drug induced. PROCEDURES: Right femoropopliteal redo with graft by Dr. Unger on 02/20/2017. CONSULTATIONS: Hospitalist for medical management. HOSPITAL COURSE: This is a 71-year-old male, admitted to [facility] on 02/20/2017 after right femoropopliteal redo with graft. The patient with history of bilateral femoropopliteal bypasses done by Dr. Unger. He presented to the clinic for routine followup, complaining of claudication symptoms and an arterial duplex revealed occluded right bypass graft. The patient continued to smoke postoperatively. It was determined to pursue right femoropopliteal redo due to the presentation of nonhealing wound to his right fifth toe and critical limb ischemia. See history and physical for full patient details. The patient was taken to the operating room on February 20 and tolerated the procedure well with a strong dorsalis pedis signal at the completion of surgery. After recovery, he was admitted to the progressive care unit for monitoring of telemetry, vitals, labs, surgical site, pain management, medication administration, and nursing assistance. His diet was advanced as tolerated. He was placed on bedrest for 24 hours and his IV antibiotics were continued for 3 days. The hospitalists were consulted for medication management. The patient was started on aggressive sliding scale and insulin a.c. and h.s. and q.h.s. Levemir. On postop day #1, the patient was found to have a strong dorsalis pedis pulse with warm and well-perfused foot. He was allowed to ambulate in the bathroom and up to the chair. His dressings to his right extremity were found to be clean, dry, and intact. His Eliquis was restarted for history of atrial fibrillation. His Huerta catheter was discontinued and physical therapy evaluation was ordered to begin on postop day #2. The patient's right toe was continued to be treated with PATIENT'S NAME: ALE RADER [facility] AGE: 71 Y [address] ROOM: [place] [address] LOCATION: GPCU ADMIT DATE: 02/20/2017 Discharge Summary DISCHARGE DATE: 02/24/2017 FAMILY PHYSICIAN: Adali Walton ATTENDING PHYSICIAN: Lasha Unger. On postop day #2, his lower incision was found to be clean, dry, and intact with the wound VAC intact to his groin. He continued to have strong DP pulse with good PT signals on Doppler. The patient also appeared to have improvement in his right fifth toe healing. The patient did complain of orthostatic pressure changes and hypotension. He received 500 mL of normal saline fluid bolus and blood pressure medications were held for systolic blood pressure less than 100. Hypotension suspected to be drug induced from IV pain medications. By postop day #4, the patient was found in a stable condition with blood pressures, pain, and blood sugars under good control. The patient was found in a stable condition to be discharged home. DISCHARGE ORDERS: The patient is to be discharged to home on his previous diet. He is to avoid heavy lifting for 2 weeks. He is to apply a daily dry dressing to his right lower leg incision. He is to follow up with Julia Kapoor APRN, on 02/27/2017 for VAC removal at groin site. He is to follow up with his medical unit secretary in 1 week. He is to report any signs or symptoms of infection including redness, swelling, fevers, chills, or drainage. DISCHARGE MEDICATIONS: 1. Lasix 20 mg p.o. daily. 2. Glucophage 1700 mg p.o. at bedtime. 3. Potassium chloride 10 mEq p.o. daily. 4. Restoril 15 mg p.o. daily at bedtime. 5. Levemir 68 units subcutaneously every night at bedtime. 6. NovoLog 8 units subcutaneously every morning. 7. NovoLog 16 units subcutaneously every evening at 2100 hours. 8. Coreg 12.5 mg p.o. twice daily. 9. Lipitor 40 mg p.o. every night at bedtime. 10. Requip 0.5 mg p.o. every night at bedtime. 11. CPAP inhale per home settings. 12. Glucophage 850 mg p.o. every morning. 13. NovoLog 20 units subcutaneously every noon. 14. Gabapentin 300 mg p.o. 3 times daily. 15. Eliquis 5 mg p.o. twice daily. 16. Entresto 24/26 mg p.o. twice daily. 17. Plavix 75 mg p.o. daily. 18. Oxygen 2 to 3 L with CPAP. 19. Tramadol 50 mg p.o. every 6 hours as needed for pain. 20. Multivitamin 1 tablet p.o. every day. 21. Lidex 0.05% cream 1 application topically twice daily. 22. Kenton 5/325 one to two tablets every 4 hours as needed for pain. 23. Bactrim DS 1 tablet p.o. every day, stop on 02/27/2017. DISPOSITION: The patient is to be discharged home in stable condition. He is to follow discharge orders as prescribed. Education about discharge including PATIENT'S NAME: ALE RADER [facility] AGE: 71 Y [address] ROOM: [place] [address] LOCATION: GPCU ADMIT DATE: 02/20/2017 Discharge Summary DISCHARGE DATE: 02/24/2017 FAMILY PHYSICIAN: Adali Walton ATTENDING PHYSICIAN: Lasha Unger Prevena VAC, medications, prescriptions, diet and activity, and followup appointments given to the patient. The patient verbalized understanding of the plan and had no further questions or concerns. He is to follow discharge orders as prescribed. JULIA KAPOOR APRN FOR LASHA UNGER MD TO/jose /[id number] d: 02/28/17 0242 t: 02/28/17 0846, DISCHARGE SUMMARY
--- NOTE | ~2017-02-16 | OR ---
PATIENT'S NAME: ALE RADER [facility] AGE: 71 Y [address] ROOM: [address] [address] LOCATION: GPCU ADMIT DATE: 02/20/2017 OR/Procedure Report DISCHARGE DATE: FAMILY PHYSICIAN: Adali Walton ATTENDING PHYSICIAN: LASHA ARIAS SURGEON: Lasha Arias MD MACHINE CLEANER: DATE OF PROCEDURE: 02/20/2017 PREOPERATIVE DIAGNOSIS: Critical limb ischemia of the right lower extremity POSTOPERATIVE DIAGNOSIS: Critical limb ischemia of the right lower extremity. PROCEDURE: Right redo femoral-popliteal with graft. CRIMPER ASSEMBLER: JESSE Wood. ANESTHESIA: General. ESTIMATED BLOOD LOSS: 100 mL. OPERATIVE FINDINGS: Good DP signal, which augmented with compression of the graft. DESCRIPTION OF PROCEDURE: The patient was brought to the operating room and placed supine on the operating table, placed under general anesthesia, prepped and draped in a sterile manner. Preop time-out was performed. The patient received preoperative antibiotics. We reopened his previous femoral-popliteal incisions, both in the groin as well as the right leg. We exposed the popliteal artery as well as common femoral artery above his previous bypass. We then tunneled a 6-mm graft from the common to the popliteal. We then gave 5000 units of heparin. We clamped proximally and distally on the popliteal and made an arteriotomy to a size of 6 mm. We then did a standard 6-0 Prolene anastomosis in a running fashion. We then clamped proximally and distally on the common femoral and made an arteriotomy. There was some plaque here proximally, so we did a limited femoral endarterectomy at this point, then we did a standard 5-0 Prolene anastomosis from the graft to the common femoral artery. We removed the clamps. There was excellent flow into the graft and DP signal augmented with compression of the graft. We reversed heparin with use of protamine. Deep layers were closed with 2-0 and 3-0 Vicryl, skin was closed with running 4-0 Monocryl in the groin and 4-0 nylon in the leg. The wound in the groin was covered with a Prevena. The patient tolerated the procedure well, awoken in the operating room, transferred to the recovery room and then up to the floor. PATIENT'S NAME: RADER, ALE B [facility] AGE: 71 Y [address] ROOM: [address] [address] [facility] AD[facility] DATE: 02/20/2017 OR/Procedure Report DISCHARGE DATE: FAMILY PHYSICIAN: Adali Walton ATTENDING PHYSICIAN: LASHA ARIAS MD RONNIE KINGSLEY/jeanettel /[id number] d: [birth year] t: 02/22/17 1735, OPERATIVE SUMMARY
[~2017-02-16 15:00] MED LIST changes: +BACTRIM DS1 TAB PO; +OXYGEN M-15
[2017-02-20 07:13] LABS: BASOPHIL # 0.1 K/uL (0.0-0.2); BASOPHIL % 0.7 %; EOSINOPHIL # 0.3 K/uL (0.0-0.5); HEMATOCRIT 41.2 % (37.0-53.0); IMMATURE GRANULOCYTE % 0.3 %; LYMPHOCYTE % 23.2 %; MCH 33.3 pg (27.0-34.0); MCV 98.1 fl (83.0-98.0); MONOCYTE % 11.7 %; MPV 11.7 fl (9.4-12.4); NEUTROPHIL # (ANC) 5.3 K/uL (1.4-9.0); NEUTROPHIL % 61.1 %; NRBC % 0 /100WBC (0-0.00); PLATELET COUNT 203 K/uL (150-450); RDW-CV 14.6 % (11.9-14.6); WBC 8.6 K/uL (4.0-11.0)
[2017-02-20] MEDS ORDERED: THERA-VITE W/ B1 TAB PO (07:28)
[2017-02-20] MEDS ORDERED: ULTRAM50 MG PO (07:28)
[2017-02-20] MEDS ORDERED: LIDEX 0.05% CRE30 GM TOP (07:30)
[2017-02-20 07:32] LABS: ANION GAP 10.7 (10.0-19.0); CALCIUM 9.3 mg/dL (8.5-10.5); CREATININE 1.2 mg/dL (0.6-1.3); POTASSIUM 4.7 mMol/L (3.7-5.1); TOTAL PROTEIN 7.9 g/dL (6.0-8.4)
[2017-02-20 07:49] LABS: TOTAL BILIRUBIN 0.4 mg/dL (0.0-1.5)
[2017-02-20 16:21] LABS: ANION GAP 10.4 (10.0-19.0); CREATININE 1.1 mg/dL (0.6-1.3); POTASSIUM 5.4 mMol/L (3.7-5.1)
[2017-02-20 18:53] LABS: CALCIUM 8.2 mg/dL (8.5-10.5); CREATININE 1.1 mg/dL (0.6-1.3)
--- NOTE | 2017-02-20 20:17 | NUR ---
Significant Event: Alert and oriented X 3. O2 at 2L nasal cannula wears Cpap at night. SBP 100s to 130's. HR 70's. Dressing to leg shadow drainage, increased slightly since arriving to floor. Wound vac to right groin, area soft to touch. ACHS accu check, 305 at 1800 with 12 units given aggressive sliding scale. ADA diet. Lactated ringers infusing at 75 ml/hour to run for 24 hours and then stop (around 1300 02/21/17. Right radial site, dressing clean dry and intact no signs of bleeding. Reagan given at 1700. 24 hour bedrest. Pleasant and cooperative with cares. Follow up:
[2017-02-20 20:37] LABS: ANION GAP 10.8 (10.0-19.0)
[2017-02-20 20:38] LABS: POTASSIUM 4.8 mMol/L (3.7-5.1)
--- NOTE | 2017-02-21 05:24 | NUR ---
Significant Event:A/Ox3. Afebrile. VSS on RA. Patient wears his own CPAP at HS. Lung sounds clear to cl/dim. Huerta to DD with 800ml UOP. Patient is on bedrest x24 hours. LR infusing at 75ml/h x 24 hours. Incision to R)tripp no changes to drainage. [place] x1 for pain. Follow up:Continue with IV ATB x3 days total.
[2017-02-21 05:52] LABS: BASOPHIL % 0.4 %; EOSINOPHIL # 0.1 K/uL (0.0-0.5); EOSINOPHIL % 1.2 %; HEMATOCRIT 35.4 % (37.0-53.0); IMMATURE GRANULOCYTE % 0.3 %; LYMPHOCYTE # 1.8 K/uL (0.8-4.0); LYMPHOCYTE % 17.1 %; MCH 33.4 pg (27.0-34.0); MCHC 33.9 gm/dL (32.0-36.5); MCV 98.6 fl (83.0-98.0); MONOCYTE # 1.2 K/uL (0.0-1.0); MPV 11.9 fl (9.4-12.4); NEUTROPHIL # (ANC) 7.1 K/uL (1.4-9.0); NRBC % 0 /100WBC (0-0.00); PLATELET COUNT 168 K/uL (150-450); RBC 3.59 M/uL (3.50-5.50); RDW-CV 14.6 % (11.9-14.6); WBC 10.3 K/uL (4.0-11.0)
--- NOTE | 2017-02-21 11:36 | NUR ---
Diabetes center note: 0900 Patient was sound asleep when CDE goes to room. Left the Diabetes Management booklet and Survival Skills Checklist at bedside and will check back with patient later today for assistance and assessment of educational needs. A1C result was 9%.
--- NOTE | 2017-02-21 13:12 | NUR ---
Introduced self and role of care management to pt. He lives in [place] with his and is active and independent with cares. He thinks maybe home tomorrow or [facility] and denies any dc needs or hhc. He states he has walker to use if needed. WIll continue to follow.
--- NOTE | 2017-02-21 15:56 | NUR ---
Diabetes center note: 1600 Talked to patient and spouse, they have completed the Diabetes Assessment form, there are no educational needs identified at this time. A1C of 9 % discusssed and stressed importance of trying to obtain better control of blood sugars to reduce further complications related to diabetes. Assessment form placed on chart. [facility] [place], [place] for [facility]. Pau, primary care nurse voices concerns regarding insulin orders with aggressive sliding scale, plus his meal time Novolog insulin doses as he takes at home. Pau plans to call MD to clarify orders.
--- NOTE | 2017-02-21 16:31 | NUR ---
Significant Event: Alert and oriented X 3. Room air. SBP 90's and 100's. HR 60's, 80's and 90's. Up with 1 assist gait belt and walker to recliner. Left leg elevated. Dressing to left leg, shadow drainage with no additional drainage this shift. Wound vac to left groin intact, surrounding area soft to palpation. Dressing changed to 5th toe on left foot. Dressing to be changed BID with betadine soulution and gauze. ACHS Accu checks. 185, 321. Patient likes to take medication with milk. Large bowel movement this shift. Huerta removed with 350 ml and 1 void since removal. Pleasant and cooperative with cares. Follow up:
--- NOTE | 2017-02-22 04:44 | NUR ---
Significant Event: A/O x3, NO N/T. IRREGULAR HEART RHYTHM, PVC'S, 1ST DEGREE HEART BLOCK. PATIENT ON RA, AND USING HOME NASAL CPAP WHILE SLEEPING AT NIGHT. R) FOREARM IV, SALINE LOCKED, NO COMPLICATIONS. R) GROIN WOUND VAC C/D/I. R) KNEE DRESSING HAS SHADOW DRAINGAGE. R) PINKY TOE DRESSING CHANGED, BETADINE TREATMENT. TREATED WITH 6 UNITS INSULIN FOR 2100 BG, AGGRESSIVE SLIDING SCALE. Follow up:
[2017-02-22 05:41] LABS: BASOPHIL % 0.2 %; EOSINOPHIL # 0.2 K/uL (0.0-0.5); EOSINOPHIL % 1.9 %; HEMATOCRIT 36.6 % (37.0-53.0); HEMOGLOBIN 12.5 g/dL (11.0-16.0); IMMATURE GRANULOCYTE % 0.3 %; LYMPHOCYTE # 1.4 K/uL (0.8-4.0); LYMPHOCYTE % 14.2 %; MCH 33.2 pg (27.0-34.0); MCHC 34.2 gm/dL (32.0-36.5); MCV 97.3 fl (83.0-98.0); MONOCYTE # 1.4 K/uL (0.0-1.0); MONOCYTE % 14.4 %; MPV 11.9 fl (9.4-12.4); NEUTROPHIL # (ANC) 6.7 K/uL (1.4-9.0); NRBC % 0 /100WBC (0-0.00); PLATELET COUNT 156 K/uL (150-450); RBC 3.76 M/uL (3.50-5.50); RDW-CV 14.6 % (11.9-14.6); WBC 9.7 K/uL (4.0-11.0)
--- NOTE | 2017-02-22 16:26 | NUR ---
Reviewed IMM. Plan still is home on dc.
--- NOTE | 2017-02-22 19:20 | NUR ---
PATIETN WAS LIGHTHEADED AND UNABLE TO TRANSFER TO CHAIR W/ PT THIS AM. BP 89/58. PATIETN HAD 2 BURSTS OF V-TACH THIS AM. DR CASTELLANO NOTIFIED OF THE VTACH AND LIGHTHEADEDNESS/BP. FLUID BOLUS GIVEN AND BP IMPROVED. JOSEFINAN ABLE TO TRNASFER TO CHAIR THIS AFTERNOON.
[2017-02-23 04:32] LABS: BASOPHIL % 0.2 %; EOSINOPHIL # 0.1 K/uL (0.0-0.5); HEMATOCRIT 38.8 % (37.0-53.0); IMMATURE GRANULOCYTE # 0.1 K/uL (0.0-0.3); IMMATURE GRANULOCYTE % 0.4 %; LYMPHOCYTE # 1.5 K/uL (0.8-4.0); LYMPHOCYTE % 11.8 %; MCH 33.4 pg (27.0-34.0); MCHC 33.5 gm/dL (32.0-36.5); MCV 99.7 fl (83.0-98.0); MONOCYTE # 1.7 K/uL (0.0-1.0); MONOCYTE % 13.5 %; MPV 11.5 fl (9.4-12.4); NEUTROPHIL # (ANC) 9.1 K/uL (1.4-9.0); NEUTROPHIL % 73.1 %; NRBC % 0 /100WBC (0-0.00); PLATELET COUNT 158 K/uL (150-450); RBC 3.89 M/uL (3.50-5.50); RDW-CV 14.6 % (11.9-14.6); WBC 12.4 K/uL (4.0-11.0)
--- NOTE | 2017-02-23 05:04 | NUR ---
Significant Event: A/O x3, NO N/T. ONE ASSIST, GAITBELT. R) FOREARM IV, NO COMPLICATIONS, SALINE LOCKED, ABX TREATMENT. IRREGULAR RHYTHM, 1ST DEGREE BLOCK, PVC, POSSIBLY FLIPPED IN AND OUT OF AFIB. ON RA. ADA DIET. R) GROIN WOUNDVAC, NO COMPLICATIONS. R) KNEE GAUZE, SHADOW DRAINAGE. R) PINKY TOE GAUZE, C/D/I. NORCO FOR PAIN. BG AT 0200 WAS 66, GIVEN ORANGE JUICE. CHECKED 15 MINS LATER, BG OF 59, TREATED WITH GLUCOSE TABS AND ORANGE JUICE. CHECKED AGAIN, BG OF 74, GIVEN PEANUT BUTTER AND CRACKERS. LAST CHECKED, BG WAS 151. PATIENT'S BP'S RUN LOW, SBP'S IN THE 90'S, MAPS GREATER THAN 65. Follow up:
--- NOTE | 2017-02-23 10:30 | NUR ---
Diabetes consult; Pateint reports he was anticipating going home today but reports he has only ambulated as far as the bathroom. The patient did experience a low blood sugar this morning. Recommendation was left for the physician in the chart to consider lower the patient's Levemir dose to 65 units. Currently, the patient is sitting up in the chair. Denies any questions or concerns regarding his diabetes. Diabetes education was completed.
--- NOTE | 2017-02-23 19:32 | NUR ---
Significant Event: Alert and oriented X 3. SBP 100's and 110's. HR 70's and 80's. Up with 1 assist, gait belt and walker. Gauze and gauze wrap to lower leg, dressing change daily. Wound vac to right groin, area soft and no complicatons. Dressing change with gauze, tape and betadine to right 5th toe. ACHS accucheck. Intermittent antibiotic. Pleasant and cooperative with cares. Follow up:
[2017-02-24 03:35] LABS: BASOPHIL % 0.4 %; EOSINOPHIL # 0.2 K/uL (0.0-0.5); EOSINOPHIL % 1.7 %; HEMATOCRIT 32.5 % (37.0-53.0); HEMOGLOBIN 11.2 g/dL (11.0-16.0); IMMATURE GRANULOCYTE # 0.1 K/uL (0.0-0.3); IMMATURE GRANULOCYTE % 0.5 %; LYMPHOCYTE # 1.3 K/uL (0.8-4.0); LYMPHOCYTE % 11.9 %; MCH 33.8 pg (27.0-34.0); MCHC 34.5 gm/dL (32.0-36.5); MCV 98.2 fl (83.0-98.0); MONOCYTE # 1.3 K/uL (0.0-1.0); MONOCYTE % 11.7 %; MPV 11.5 fl (9.4-12.4); NEUTROPHIL # (ANC) 8.2 K/uL (1.4-9.0); NEUTROPHIL % 73.8 %; NRBC % 0 /100WBC (0-0.00); PLATELET COUNT 149 K/uL (150-450); RBC 3.31 M/uL (3.50-5.50); RDW-CV 14.5 % (11.9-14.6); WBC 11.1 K/uL (4.0-11.0)
--- NOTE | 2017-02-24 04:59 | NUR ---
SIGNIFICANT EVENT: PATIENT IS ALERT AND ORIENTED X3. PLEASANT AND COOPERATIVE WITH CARES. WEARS A CPAP AT NIGHT. VSS, ON ROOM AIR. SBP 100'S, HR 70-80'S, PAIN BETWEEN 4-8/10 IN R) KNEE. PATIENT STATES HE HAS HAD TOLERABLE PAIN CONTROL THIS SHIFT. TRAMADOL WAS GIVEN ONCE AT 2200 AND NORCO 2 TABS GIVEN AT 0300. PATIENT IS SLEEPING SOUNDLY. INSULIN WAS REFUSED AT 2100 BUT LEVEMIR 68 UNITS WAS GIVEN AT 2100. PT'S BS WAS 138 AT 0300 THIS AM. PATIENT HAS WOUND VAC TO RIGHT GROIN AREA, IT IS D/C/I. PATIENT REPORTS NO NUMBNESS OR TINGLING IN R) LEG. IV IS SL IN R) FOREARM. FOLLOW UP: PLAN IS TO POSSIBLY D/C HOME TODAY 02/24/17 WITH WOUND VAC. CONTINUE PLAN OF CARE.
[2017-02-24] MEDS ORDERED: NORCO 5-325 TA1 EACH PO (15:49)
[2017-02-24] MEDS ORDERED: BACTRIM DS1 TAB PO (15:50)
--- NOTE | 2017-02-24 18:14 | NUR ---
PATIENT DISMISSED TO HOME WITH PER PRIVATE AUTO. PATIENT TRANSFERED TO CAR PER W/C BY NURSE AID. REVIEWED DISMISSAL INSTRUCTIONS WITH PATIENT, HE VERBALIZED UNDERSTANDING. GAVE INFORMATION ON NEW MEDICATIONS. PATIENT CONTINUED ON WOUND VAC, DR ARIAS ORDERED FOLLOW UP APPOINTMENT SUNDAY.
== END 2017-02-24 16:30 | disposition disaster alternative care site (69) | DRG 253 ==
LOC: GPCU 02-20 06:28
PROVIDERS: Internal Medicine; ADMIT Surgery Vascular Surgery
PROC: 04CK0ZZ Extirpation of Matter from Right Femoral Artery, Open Approach (ICD-10-PCS; principal; 2017-02-20)
DX: I70.25 Atherosclerosis of native arteries of other extremities with ulceration (principal); I42.0 Dilated cardiomyopathy; I11.0 Hypertensive heart disease with heart failure; I50.9 Heart failure, unspecified; I48.0 Paroxysmal atrial fibrillation; E11.51 Type 2 diabetes mellitus with diabetic peripheral angiopathy without gangrene; E11.621 Type 2 diabetes mellitus with foot ulcer; E11.65 Type 2 diabetes mellitus with hyperglycemia; G25.81 Restless legs syndrome; I95.2 Hypotension due to drugs; I99.8 Other disorder of circulatory system; I25.10 Atherosclerotic heart disease of native coronary artery without angina pectoris; Z95.1 Presence of aortocoronary bypass graft; E78.5 Hyperlipidemia, unspecified; J44.9 Chronic obstructive pulmonary disease, unspecified; F32.9 Major depressive disorder, single episode, unspecified; K21.9 Gastro-esophageal reflux disease without esophagitis; F41.8 Other specified anxiety disorders; Z87.891 Personal history of nicotine dependence; Z79.4 Long term (current) use of insulin; Z79.01 Long term (current) use of anticoagulants; G47.33 Obstructive sleep apnea (adult) (pediatric); L97.521 Non-pressure chronic ulcer of other part of left foot limited to breakdown of skin; T50.905A Adverse effect of unspecified drugs, medicaments and biological substances, initial encounter; Y92.89 Other specified places as the place of occurrence of the external cause
CPT/HCPCS: A9270; J0690; J1100; J1644; J1650; J2001; J2270; J2405; J2720; J3010; J7030; J7050; J7120; L8670